=== PATIENT | female | born 1960 | race Caucasian/White ===

== ENCOUNTER 2020-03-24 08:56 | Outpatient (CLI) | payer OTHER, SELFPAY ==
--- NOTE | 2020-03-24 09:30 | NEURO_ITS ---
TEST: ELECTROENCEPHALOGRAM DIAGNOSIS: SEIZURES PATIENT NUMBER: [id number] EEG NUMBER: [id number] RECORDING DATE: 03/24/20 CLINICAL HISTORY: Patient reports she had a seizure 4 years ago from medication for MS. She has had no problems until a couple of months ago. CONDITION OF RECORDING: Awake and drowsy EEG DESCRIPTION: Basic resting occipital frequency consists of low voltage alpha mixed with low voltage beta. Photic stimulation produced poor drive. During drowsiness low voltage beta activity is seen diffusely mixed with waxing and waning posterior alpha rhythms. Bilateral symmetrical sleep activity is seen during sleep. Nonparoxysmal. Nonfocal. Nonlateralizing. IMPRESSION: No significant abnormalities noted. MTDD
== END 2020-03-24 08:57 | disposition home or self-care (01) ==
LOC: ANHNEURO 08:58
PROVIDERS: PCP Internal Medicine; Visit Provider Psychiatry & Neurology Neurology
DX: R56.9 Unspecified convulsions (principal)
CPT/HCPCS: 95816

== ENCOUNTER 2020-03-24 19:54 | Observation (INO) | payer OTHER, SELFPAY ==
--- NOTE | ~2020-03-24 | XR_ITS ---
EXAMINATION: XR chest 2V DATE: 03/24/2020 21:20 INDICATION: Seizures. Resolved left-sided chest pain. TECHNIQUE: frontal and lateral views of the chest were obtained. COMPARISON: Chest radiograph dated 12/06/2010 FINDINGS: The lungs remain clear with no focal airspace opacities, pulmonary edema, pleural effusion or pneumot horax. Heart size and mediastinal silhouette are normal. Right cardiac opacities suggesting a small t o moderate sized hiatal hernia. Visualized bones and soft tissues are unremarkable. IMPRESSION: 1. No acute cardiopulmonary disease. 2. Likely small to moderate hiatal hernia. Reviewed, dictated and finalized at location A.
--- NOTE | ~2020-03-24 | CT_ITS ---
EXAMINATION: CT brain wo con DATE: 03/24/2020 21:20 INDICATION: Seizures. Multiple sclerosis. TECHNIQUE: Computed tomography (CT) of the head was performed without intravenous contrast. Sagittal and coronal reconstructions were performed. The mA was adjusted according to patient size. Iterative reconstruction technique was employed. The dose-length product was 605.33 mGy-cm. COMPARISON: Brain MR dated 03/26/2016 FINDINGS: No acute intracranial hemorrhage, acute infarction or abnormal extra axial fluid collection. Prominen t perivascular space at the inferior aspect of the bilateral basal ganglia. Low-attenuation lesion in the left frontal espinosa radiata which could represent either an old lacunar infarct or demyelinating lesion related to reported history of multiple sclerosis. Ventricles are normal and symmetric. No ma ss/mass effect. Partial opacification of multiple bilateral ethmoid air cells and dependently layerin g fluid in the bilateral sphenoid sinuses. The orbits and mastoid air cells are normal. IMPRESSION: 1. No acute intracranial process. 2. Low-attenuation lesion in the left frontal lobe espinosa radiata which could represent a small old l acunar infarct or demyelinating lesion related to reported history of multiple sclerosis. 3. Sinus disease with layering mucus/fluid in the bilateral sphenoid sinuses. Correlate clinically fo r acute sinusitis. Reviewed, dictated and finalized at location A. IMPRESSION: 1. No acute intracranial process. 2. Low-attenuation lesion in the left frontal lobe espinosa radiata which could r epresent a small old lacunar infarct or demyelinating lesion related to reporte d history of multiple sclerosis. 3. Sinus disease with layering mucus/fluid in the bilateral sphenoid sinuses. C orrelate clinically for acute sinusitis.
[2020-03-24 20:05] VITALS: BP 141/76; PULSE 76; RESP 16; TEMP 36.5; O2SAT 98
--- NOTE | 2020-03-24 20:06 | ECG_ITS ---
Measurements Intervals [employer] Rate: 72 P: 19 MS: 129 QRS: 9 QRSD: 81 T: 31 QT: 370 QTc: 406 Interpretive Statements SINUS RHYTHM BASELINE ARTIFACT- I, II, III, AVR, AVL, AVF, V1-V6 BORDERLINE ECG Electronically Signed On 03-26-2020 8:14:39 CDT by Dante Parsons D.O.
--- NOTE | 2020-03-24 20:15 | ED.SEIZURE ---
HPI - Seizure General Chief Complaint: Seizure Stated Complaint: amb Time Seen by Provider: 03/24/20 20:00 Source: patient and family Mode of arrival: EMS Limitations: no limitations History of Present Illness HPI Narrative: 59-year-old woman with a history of cardiomyopathy and MS brought in today by EMS after having had 16 seizures since noon today. Family states that she had slurred speech but had otherwise recover completely between the episodes. Around the time of the 1st seizure she had some severe chest pain. She told her family that she has some pain in her abdomen before the seizures start. She started having seizures in December and was treated with anti seizure medication and had no seizures until 5 days ago. She had 4 seizures that day, for seizures 2 days ago, 2 seizures yesterday and 16 today. She denies nausea, vomiting, headache, dysuria, abdominal pain, shortness of breath or chest pain at present. She denies any recent illness or head injuries. She had an EEG at [facility] this morning. complaint: seizure Onset (ago): hour(s) (8) Description of Episode: loss of consciousness, tonic-clonic movement and post-event confusion -: minutes(s) Witnessed: Yes - by Bystander Trauma: No Seizure History: Yes Place: home Possible Precipitating Event: none Associated symptoms: chest pain Related Data Home Medications Medication Instructions Recorded Confirmed aspirin [Aspir-81] 81 mg PO DAILY 03/24/20 03/24/20 levetiracetam 500 mg PO BID 03/24/20 03/24/20 losartan 50 mg PO DAILY 03/24/20 03/24/20 metoprolol succinate 12.5 mg PO DAILY 03/24/20 03/24/20 omeprazole 40 mg PO DAILY 03/24/20 03/24/20 Allergies Allergy/AdvReac Type Severity Reaction Status Date / Time Penicillins Allergy Intermediate Anaphylactic Verified 04/26/14 07:51 Shock Review of Systems Constitutional: Constitutional: Denies chills, Denies fever(s) and Denies weakness Eyes: Eyes: Denies change in vision and Denies photophobia ENT: Denies dysphagia, Denies nasal congestion and Denies sore throat Cardiovascular: Cardiovascular: Reports chest pain and Denies radiating jaw, neck or arm pain Respiratory: Respiratory: Denies cough, Denies dyspnea and Denies wheezing Gastrointestinal: Gastrointestinal: Denies abdominal pain, Denies nausea and Denies vomiting Genitourinary: Genitourinary: Denies hematuria, Denies nocturia and Denies dysuria Musculoskeletal: Musculoskeletal: Denies back pain, Denies arthralgias and Denies joint swelling Integumentary/Breasts: Skin/Breast: Denies pruritus, Denies erythema and Denies rash Neurologic: Denies vertigo, Denies dizziness and Denies syncope Hematologic/Lymphatic: Hematologic/Lymphatic: Denies easy bleeding and Denies easy bruising Allergic/Immunologic: Allergic/Immunologic: Denies lip swelling and Denies wheezing PMFSH Past Medical History Medical History Multiple sclerosis Seizures Social History Social History Smoking status: Never smoker Alcohol intake: never Substance use: never Living arrangements: with family Exam Const: General: healthy appearing, no acute distress and alert Orientation/consciousness: patient oriented x3 Limitations: no limitations HENMT: Head: normal to inspection Ears: external ears normal and EAC's normal Face and sinus: normal facial exam Mouth: Yes Normal oral and palatal mucosa present and Yes moist mucous membranes Throat: posterior oropharynx normal and uvula midline Eyes: Conjunctivae: conjunctivae normal Pupils: Equal, round and reactive pupils present EOM: EOMs intact bilaterally Neck: Neck: normal visual inspection and no lymphadenopathy Resp: Effort & Inspection: normal respiratory effort and not labored Auscultation: clear to auscultation bilaterally, no rales, no rhonchi and no wheezes Cardio: Rate: re
--- NOTE | 2020-03-24 20:20 | PC.NURSE ---
THIS RN CALLED INTO ROOM BY [employer], STATES SHE IS HAVING A SEIZURE . PT HAS EYE TWITCHING AND SHOULDERS BOUNCING - PT IS TAPPED ON THE SHOULDER BY ERP, PATIENT OPENS EYES UP AND IS ABLE TO ANSWER IMMEDIATELY AND APPROPRIATELY. NO SEIZURE ACTIVITY NOTED
[2020-03-24 20:27] LABS: Basophils Absolute Auto 0.04 K/mm3 (0.00-0.10); Basophils Percent Auto 0.7 % (0.0-1.0); Eosinophils Absolute Auto 0.25 K/mm3 (0.02-0.50); Eosinophils Percent Auto 4.3 % (1.0-6.0); Hematocrit 38.2 % (35.0-49.0); Hemoglobin 12.6 g/dL (12.0-15.0); Immature Granulocyte Absolute 0.01 K/mm3 (0.00-0.00); Immature Granulocyte Percent A 0.2 % (0.0-0.0); Lymphocytes Absolute Auto 1.92 K/mm3 (1.10-4.50); Lymphocytes Percent Auto 32.7 % (18.0-42.0); Mean Corpuscular Hemoglobin 31.5 pg (27.0-31.0); Mean Corpuscular Volume 95.5 fL (78.0-102.0); Mean Platelet Volume 12.2 fl (9.2-11.8); Monocytes Percent Auto 8.5 % (2.0-11.0); Neutrophils Absolute Auto 3.2 K/mm3 (1.7-7.2); Neutrophils Percent Auto 53.6 % (50.0-70.0); Platelet Count Result 212 K/mm3 (150-420); Red Cell Distribution Width 13.2 % (11.6-14.4); White Blood Count 5.9 K/mm3 (4.8-10.8)
[2020-03-24 20:36] LABS: Add Urine Microscopic? NO; Appearance Urine Clear (Clear); Bilirubin Urine Negative (Negative); Blood Urine Negative (Negative); Color Urine Yellow (Yellow); Glucose Urine UA Negative (Negative); Ketones Urine Negative (Negative); Leukocyte Esterase Ur Negative LEU/UL (Negative); Nitrate Urine Negative (Negative); Protein Urine Negative (Negative); Specific Grav Ur <= 1.005 (1.010-1.020); Urobilinogen Urine 0.2 mg/dL (0.2-1.0)
[2020-03-24 20:41] LABS: Partial Thromboplastin Time 28.9 SEC (22.3-31.6); Prothrombin Time 10.3 Seconds (9.64-11.0)
[2020-03-24 20:47] LABS: Alanine Aminotransferase 22 U/L (14-59); Albumin Level 3.5 g/dL (3.4-5.0); Alkaline Phosphatase 107 U/L (46-116); Anion Gap 11.8 mmol/L (7-16); Aspartate Amino Transferase 20 U/L (15-37); Bilirubin,Total 0.3 mg/dL (0.00-1.00); Blood Urea Nitrogen 20 mg/dL (7-18); CRP 1.1 mg/dL (0.0-0.9); Calcium 9.2 mg/dL (8.5-10.1); Carbon Dioxide 28 mmol/L (21-32); Chloride 103 mmol/L (98-108); Estimated Glomerular Filt Rate 48; Glucose 98 mg/dL (70-99); Osmolality Calculated 290 mOsm/kg (285-295); Potassium 3.8 mmol/L (3.5-5.1); Sodium 139 mmol/L (136-145); Total Protein 7.8 g/dL (6.4-8.2)
[2020-03-24 20:48] LABS: Troponin I < 0.02 ng/mL (0.00-0.056)
[2020-03-24 20:48] LABS: Creatine Kinase 62 U/L (26-192)
[2020-03-24 20:50] LABS: Lactic Acid Reflex 1.1 mmol/L (0.4-2.0)
--- NOTE | 2020-03-24 21:02 | PC.NURSE ---
ERP SPEAKING WITH DR ESPINOZA, NEUROLOGY
[2020-03-24 21:16] VITALS: BP 113/75; PULSE 73; O2SAT 96
[2020-03-24 21:41] VITALS: BP 132/63; PULSE 73; RESP 18; TEMP 36.6; O2SAT 96; BMI 30.1
[2020-03-24 21:45] VITALS: BP 117/68; PULSE 82; RESP 15; O2SAT 96
[2020-03-24 22:00] VITALS: RESP 18
--- NOTE | 2020-03-24 22:00 | ADMGEN ---
This patient, Samara Kelly, was admitted to 2nd Floor Room 204-2. Patient states she had recently received a medication and started having seizures. States seizures starts with tingling in stomach and spreads to generalized tremors but may be her M.S. that also causes tremors, patient states she is aware during the episodes. Patient/family oriented to hospital policies and general routines including ID bracelet, bed and alarms, visiting hours, pain management, procedures, bathroom and other care routines, personal items, smoking policy, room service/diet, and visiting hours. Valuables list has been completed. Information on how to activate the Rapid Response Team has been discussed. Patient/Family are encouraged to report perceived risks to care and to ask questions if they do not understand what they are told or what they should do.
[2020-03-24] MEDS: levETIRAcetam Tablet 250 MG, levETIRAcetam Tablet 500 MG 750 MG PO (22:35)
--- NOTE | 2020-03-24 23:50 | PC.NURSE ---
Talking on phone; no distress noted. No seizure activity noted.
[2020-03-25] VITALS: BP 140/82; PULSE 76; RESP 18; TEMP 36.3; O2SAT 97
[2020-03-25 01:42] LABS: Troponin I < 0.02 ng/mL (0.00-0.056)
--- NOTE | 2020-03-25 03:40 | PC.NURSE ---
Assisted up to bedside commode by one for safety; voided clear light yellow urine; patient instructed to call for assist, was found up washing hands at sink, cautioned to call for assist to ambulate in case of seizure, patient agrees to do so, assisted back to bed.
[2020-03-25 05:52] LABS: Basophils Absolute Auto 0.04 K/mm3 (0.00-0.10); Basophils Percent Auto 0.8 % (0.0-1.0); Eosinophils Absolute Auto 0.18 K/mm3 (0.02-0.50); Eosinophils Percent Auto 3.6 % (1.0-6.0); Hemoglobin 12.7 g/dL (12.0-15.0); Immature Granulocyte Absolute 0.01 K/mm3 (0.00-0.00); Immature Granulocyte Percent A 0.2 % (0.0-0.0); Lymphocytes Absolute Auto 1.76 K/mm3 (1.10-4.50); Lymphocytes Percent Auto 35.1 % (18.0-42.0); Mean Corpuscular HGB Conc 32.6 g/dL (32.0-36.0); Mean Corpuscular Hemoglobin 31.1 pg (27.0-31.0); Mean Corpuscular Volume 95.4 fL (78.0-102.0); Mean Platelet Volume 12.5 fl (9.2-11.8); Monocytes Absolute Auto 0.48 K/mm3 (0.10-0.90); Monocytes Percent Auto 9.6 % (2.0-11.0); Neutrophils Absolute Auto 2.5 K/mm3 (1.7-7.2); Neutrophils Percent Auto 50.7 % (50.0-70.0); Platelet Count Result 211 K/mm3 (150-420); Red Blood Count 4.09 M/mm3 (4.20-5.40); Red Cell Distribution Width 13.2 % (11.6-14.4)
[2020-03-25 06:10] LABS: Alanine Aminotransferase 23 U/L (14-59); Albumin Level 3.4 g/dL (3.4-5.0); Alkaline Phosphatase 100 U/L (46-116); Anion Gap 12.8 mmol/L (7-16); Aspartate Amino Transferase 18 U/L (15-37); Bilirubin,Total 0.5 mg/dL (0.00-1.00); Blood Urea Nitrogen 15 mg/dL (7-18); Calcium 9.1 mg/dL (8.5-10.1); Carbon Dioxide 28 mmol/L (21-32); Chloride 104 mmol/L (98-108); Estimated CRCL calculation 49 ml/min; Estimated Glomerular Filt Rate 57; Glucose 91 mg/dL (70-99); Osmolality Calculated 292 mOsm/kg (285-295); Potassium 3.8 mmol/L (3.5-5.1); Sodium 141 mmol/L (136-145); Total Protein 7.8 g/dL (6.4-8.2)
[2020-03-25 06:15] LABS: Lactic Acid Reflex 0.8 mmol/L (0.4-2.0)
[2020-03-25 06:18] LABS: Troponin I < 0.02 ng/mL (0.00-0.056)
[2020-03-25 07:48] VITALS: BP 122/71; PULSE 90; RESP 18; TEMP 36.5; O2SAT 97
[2020-03-25] MEDS: PANTOPRAZOLE 40 MG TABLET PO (07:58)
[2020-03-25] MEDS: LOSARTAN POTASSIUM 50 MG TABLET PO (07:58)
[2020-03-25] MEDS: ASPIRIN 81 MG ENTERIC TABLET PO (07:58)
--- NOTE | 2020-03-25 08:48 | PC.NURSE ---
pt reports no seizure activity, has been in touch with her mother and she is going to pick her up today when dc'd, pt walks to restroom without difficulty
[2020-03-25 09:27] VITALS: PULSE 90
[2020-03-25] MEDS: METOPROLOL SUCCINATE EXT REL 25 MG TABCR 12.5 MG PO (09:27)
[2020-03-25] MEDS: levETIRAcetam Tablet 250 MG, levETIRAcetam Tablet 500 MG 750 MG PO (09:28)
--- NOTE | 2020-03-25 10:26 | PC.NURSE ---
pt reports no seizure activity, dr mcconnell and chelsey in with her now for rounds
--- NOTE | 2020-03-25 11:25 | PM.SD ---
Same Day Admit/Disch: HPI History of Present Illness Chief complaint: amb <JOAN Fisher-[place] - Last Filed: 03/25/20 12:26> Narrative: Samara Kelly is a 59 year old female that visited the ED for chest pain along with increased seizure activity. Patient has a past medical history of MS and seizures. according to the patient she has had increased seizure activity for the last couple of days. Her to the e.d. was she started experiencing chest pains that did not radiate. patient noted that she did not want to come to the ED but her mother and brother insisted that she visited the ED. she noted that yesterday she had a total of 16 seizures along with her seizures she had an abnormal feeling in her abdominal area before the seizures and tingling to her right upper extremity. while in the ED a chest x-ray and head CT was completed which was unremarkable, patient's BNP and creatinine was slightly elevated currently within normal limits and patient's CRP was 1.1. patient's troponins x3 was negative. Vital signs 97.7, 90, 18, 97%, 122/71. she also noted that she is a patient of Dr. Black he discontinued medication for MS thinking that might be the possible source of her seizures. after discontinuing her medication she continued to have seizures. our ED doctor did speak with Dr. Black noted that the patient should have been taking 750mg of Keppra b.i.d.. patient was only taking 500 mg of Keppra b.i.d. since patient's Keppra has been increased she has not any seizure activities. patient will discharge today Keppra 750 mg b.i.d. and her aspirin will be increased to 325. she will need to follow-up with her neurologist and Dr. Khanna her metal mockup maker. Patient able to tolerate all meals , slept well and ambulate at baseline. Patient denies SOB, CP, palpitation, extremity numbness, lightheadness, dizziness, constipation, diarrhea, chills or fever. Patient agree that they are ready for discharge and discharge plan. <JOAN [place] - Last Filed: 03/25/20 12:26> [facility] Past Medical History Medical History: Medical History Multiple sclerosis Seizures <Steven SotoJOAN-[place] - Last Filed: 03/25/20 12:26> Social History Social History: Social History Smoking status: Never smoker Second hand tobacco smoke exposure: No Alcohol intake: never Substance use: never Substance use type: does not use Living arrangements: with family Gender identity (if verbalized by the patient): Female Spiritual care concerns: No <Steven SootMELISSA - Last Filed: 03/25/20 12:26> Same Day Admit/Disch: Med Pre-admit Medications Home Medications: Home Medications Medication Instructions Recorded Confirmed Type aspirin [Aspir-81] 81 mg PO DAILY 03/24/20 03/24/20 History losartan 50 mg PO DAILY 03/24/20 03/24/20 History metoprolol succinate 12.5 mg PO DAILY 03/24/20 03/24/20 History omeprazole 40 mg PO DAILY 03/24/20 03/24/20 History levetiracetam 750 mg PO Q12HR #30 tablet 03/25/20 Rx <Steven SotoJOAN-[place] - Last Filed: 03/25/20 12:26> Exam Narrative: Exam Narrative: General: A well-developed, well-nourished female sitting up in bed no acute distress. HEENT: Normocephalic, atraumatic. PERRL, EOMI. Sclerae anicteric. Oral mucosa moist. Oropharynx clear. Neck: Supple. Respiratory: Lungs are clear to auscultation bilaterally. Cardiovascular: Regular rate and rhythm Gastrointestinal: Abdomen is soft, nontender, and nondistended with positive bowel sounds. No organomegaly. Skin: Warm, dry, and slightly pale.. No rash or lesions on limited exam. Extremities: No cyanosis, clubbing, or edema. Radial and pedal pulses intact. Neurological: Alert. Cranial nerves 2-12 are grossly intact. No gross focal deficits to casual conversation. Psychiatric: Pleasant and cooperative with normal
== END 2020-03-25 12:05 | disposition home or self-care (01) ==
LOC: CHSED 21:40 → CHS2ND 21:49
PROVIDERS: Admitting Provider Emergency Medicine; Emergency Provider Emergency Medicine; PCP Internal Medicine; Visit Provider Emergency Medicine
DX: R56.9 Unspecified convulsions (principal); R07.9 Chest pain, unspecified; G35 Multiple sclerosis; I42.9 Cardiomyopathy, unspecified; K21.9 Gastro-esophageal reflux disease without esophagitis
CPT/HCPCS: 36415; 51701; 70450; 71046; 80053; 81003; 82550; 83605; 84484; 85025; 85610; 85730; 86140; 87040; 93005; 99285; A9270; G0378

== ENCOUNTER 2021-05-06 09:26 | Emergency (ER) | payer OTHER, SELFPAY ==
--- NOTE | ~2021-05-06 | XR_ITS ---
EXAMINATION: XR chest 2V DATE: 05/06/2021 10:01 INDICATION: Cough and left-sided chest pain TECHNIQUE: PA and lateral views of the chest were obtained. COMPARISON: Chest radiograph dated 03/24/2020 FINDINGS: A couple small calcified pulmonary nodules at the posterior sulci of the lungs on the lateral project ion consistent with old granulomatous disease. No other airspace opacities, pulmonary edema, pleural effusion or pneumothorax. Moderate-sized hiatal hernia. Heart size is normal. Mild thoracic spondylos is. IMPRESSION: 1. No acute cardiopulmonary disease. 2. Moderate sized hiatal hernia. Reviewed, dictated and finalized at location A.
--- NOTE | 2021-05-06 09:34 | ECG_ITS ---
Measurements Intervals [place] Rate: 82 P: 26 OR: 142 QRS: -1 QRSD: 77 T: 13 QT: 360 QTc: 422 Interpretive Statements SINUS RHYTHM WITH SINUS ARRHYTHMIA BASELINE ARTIFACT- II, III, AVF, V2 NORMAL ECG Electronically Signed On 05-06-2021 17:48:51 CDT by Dante Parsons D.O.
[2021-05-06 09:54] VITALS: BP 116/88; PULSE 86; RESP 20; TEMP 37; O2SAT 97
[2021-05-06 10:04] VITALS: PULSE 86
[2021-05-06 10:12] LABS: Basophils Absolute Auto 0.06 K/mm3 (0.00-0.10); Basophils Percent Auto 1.1 % (0.0-1.0); Eosinophils Absolute Auto 0.43 K/mm3 (0.02-0.50); Eosinophils Percent Auto 7.6 % (1.0-6.0); Hematocrit 39.5 % (35.0-49.0); Hemoglobin 12.7 g/dL (12.0-15.0); Immature Granulocyte Absolute 0.01 K/mm3 (0.00-0.00); Immature Granulocyte Percent A 0.2 % (0.0-0.0); Lymphocytes Absolute Auto 0.87 K/mm3 (1.10-4.50); Lymphocytes Percent Auto 15.4 % (18.0-42.0); Mean Corpuscular HGB Conc 32.2 g/dL (32.0-36.0); Mean Corpuscular Hemoglobin 30.1 pg (27.0-31.0); Mean Corpuscular Volume 93.6 fL (78.0-102.0); Mean Platelet Volume 11.4 fl (9.2-11.8); Monocytes Absolute Auto 0.45 K/mm3 (0.10-0.90); Neutrophils Absolute Auto 3.8 K/mm3 (1.7-7.2); Neutrophils Percent Auto 67.7 % (50.0-70.0); Platelet Count Result 249 K/mm3 (150-420); Red Blood Count 4.22 M/mm3 (4.20-5.40); Red Cell Distribution Width 13.5 % (11.6-14.4); White Blood Count 5.7 K/mm3 (4.8-10.8)
--- NOTE | 2021-05-06 10:21 | PC.NURSE ---
1010 PT REFUSED NITRO STATES HER TERMINAL COMPUTER OPERATOR TOLD HER NOT TO TAKE NITRO
[2021-05-06 10:25] LABS: Prothrombin Time 10.6 Seconds (9.50-12.10)
[2021-05-06 10:32] LABS: Alanine Aminotransferase 23 U/L (14-59); Albumin Level 3.6 g/dL (3.4-5.0); Alkaline Phosphatase 123 U/L (46-116); Anion Gap 14 mmol/L (8-16); Aspartate Amino Transferase 19 U/L (15-37); Bilirubin,Total 0.6 mg/dL (0.00-1.00); Blood Urea Nitrogen 14 mg/dL (7-18); Calcium 9.1 mg/dL (8.5-10.1); Carbon Dioxide 23 mmol/L (21-32); Chloride 102 mmol/L (98-108); Estimated CRCL calculation 54 ml/min; Estimated Glomerular Filt Rate > 60; Glucose 110 mg/dL (70-99); Osmolality Calculated 289 mOsm/kg (285-295); Potassium 4.2 mmol/L (3.5-5.1); Sodium 139 mmol/L (136-145); Total Protein 7.9 g/dL (6.4-8.2)
[2021-05-06 10:33] LABS: Troponin I < 4.0 ng/L (0.00-60.4)
--- NOTE | 2021-05-06 12:12 | ED.CHESTPAIN ---
HPI - Chest Pain General Chief Complaint: Chest Pain Stated Complaint: left arm and chest pain Source: patient and RN notes reviewed Mode of arrival: ambulatory Limitations: no limitations History of Present Illness HPI narrative: Patient states that she has been having chest pain for the last 3 days. She said initially it started with pain in her left arm and went up into her left shoulder. She has a history of MS and thought it was due to her MS. Than last evening she had pain in her jaw and in her teeth. When she would lay down her chest pain that began with 5/10 that was worse with laying down and better when sitting up. Since she began having the centralized substernal chest pain with jaw pain she decided to be evaluated. She denies nausea vomiting, shortness of breath, diaphoresis. She recently was started on Zithromax and inhalers for a recent bronchitis by her primary care physician. She has been vaccinated for COVID MD complaint: chest pain Onset (ago): day(s) (3) Timing of current episode: episodic Prior episodes: Yes Onset: during rest Pain location: substernal Pain radiation: left arm and jaw/teeth Severity: moderate Pain scale (0-10): 5 Quality: sharp Relieving factors: sitting upright Exacerbating factors: supine Context: recent illness Treatment prior to arrival: aspirin (650 mg) Risk Factors Thoracic aortic dissection risk factors: none Related Data Home Medications Medication Instructions Recorded Confirmed aspirin [Aspir-81] 81 mg PO DAILY 03/24/20 05/06/21 losartan 50 mg PO DAILY 03/24/20 05/06/21 metoprolol succinate 12.5 mg PO DAILY 03/24/20 05/06/21 omeprazole 40 mg PO DAILY 03/24/20 05/06/21 azithromycin 250 mg PO DAILY 05/06/21 05/06/21 levalbuterol tartrate 1 inh INHALATION TID 05/06/21 05/06/21 levetiracetam 1,000 mg PO Q12HR 05/06/21 05/06/21 ofatumumab [Kesimpta Pen] 20 mg SUBCUT MONTHLY 05/06/21 05/06/21 Allergies Allergy/AdvReac Type Severity Reaction Status Date / Time Penicillins Allergy Intermediate Anaphylactic Verified 05/06/21 10:41 Shock Review of Systems Review of Systems: All systems reviewed & are unremarkable except as noted in HPI and below Constitutional: Constitutional: Denies chills and Denies fever(s) Cardiovascular: Cardiovascular: Reports as per HPI Respiratory: Respiratory: Reports cough (for last week) and Denies dyspnea Gastrointestinal: Gastrointestinal: Denies nausea and Denies vomiting PMFSH Past Medical History Medical History (Updated 05/06/21 @ 12:14 by Terell Reinoso MD) Multiple sclerosis Seizures Family History Family History Mother Hypertension Father Cancer Heart disease Social History Social History Smoking status: Never smoker Second hand tobacco smoke exposure: No Alcohol intake: never Substance use: never Substance use type: does not use Gender identity (if verbalized by the patient): Female Spiritual care concerns: No Exam Const: General: healthy appearing and no acute distress Nutritional Appearance: well nourished and thin Orientation/consciousness: patient oriented x3 HENMT: Head: normal to inspection Ears: external ears normal Face and sinus: normal facial exam Eyes: Conjunctivae: conjunctivae normal Pupils: Equal, round and reactive pupils present EOM: EOMs intact bilaterally Neck: Neck: normal visual inspection Resp: Effort & Inspection: normal respiratory effort Auscultation: clear to auscultation bilaterally Cardio: Rate: regular rate Rhythm: regular rhythm GI: GI Palp: Yes Soft to palpation and No Tenderness to palpation present (GI) Auscultation: normal bowel sounds Back/Spine/Pelvis: Cervical Spine: cervical ROM normal Thoracic/Lumbar Spine: thoraco-lumbar ROM normal Skin: General skin exam: normal color Rashes: no rashes Neuro: General: patient oriented x3, moves
[2021-05-06 12:30] VITALS: BP 127/72; PULSE 70; RESP 20; TEMP 36.6; O2SAT 96
== END 2021-05-06 12:28 | disposition home or self-care (01) ==
PROVIDERS: Emergency Provider Emergency Medicine; PCP Internal Medicine
DX: R07.89 Other chest pain (principal)
CPT/HCPCS: 36415; 71046; 80053; 83735; 84484; 85025; 85610; 93005; 99283; 99284

== ENCOUNTER 2021-06-19 12:17 | Outpatient (CLI) | payer OTHER, SELFPAY | END 2021-06-19 12:18 | disposition home or self-care (01) | LOC: CHSCARD 12:20 | PROVIDERS: PCP Internal Medicine; Visit Provider Internal Medicine | DX: R05 Cough (principal); K21.9 Gastro-esophageal reflux disease without esophagitis; J45.909 Unspecified asthma, uncomplicated | CPT/HCPCS: 94060; 94726; 94729; 95012 ==

== ENCOUNTER 2021-06-22 08:14 | Outpatient (CLI) | payer OTHER, SELFPAY ==
--- NOTE | ~2021-06-22 | XR_ITS ---
EXAMINATION: XR UGI wo kub EXAM DATE: 06/22/2021 08:58 INDICATION: GERD/ continuous cough xyrs . TECHNIQUE: Standard single and double contrast barium upper GI examination was performed by radiolog isleonardo Tong M.D. Pulsed dose reduction fluoroscopy was used with fluoroscopic time of 0.3 minut es. The DAP for this procedure was 1.5 Gycm2. A total of 62 images obtained for the exam. FINDINGS: There is no esophageal stricture, diverticulum or mass identified. There is moderate size sliding gastroesophageal hiatal hernia. Large amount of reflux was demonstrated during the examinatio n. The stomach has a normal appearance without evidence of mass lesion, ulceration or filling defect. T here is normal rugal fold pattern. The duodenum and duodenal sweep are normal in appearance. IMPRESSION: Moderate-sized gastroesophageal hiatal hernia, reflux demonstrated. Reviewed, dictated and finalized at location .
== END 2021-06-22 08:15 | disposition home or self-care (01) ==
LOC: CHSIMG 08:16
PROVIDERS: PCP Internal Medicine; Visit Provider Internal Medicine
DX: R05 Cough (principal); K21.9 Gastro-esophageal reflux disease without esophagitis; J45.909 Unspecified asthma, uncomplicated
CPT/HCPCS: 74240

== ENCOUNTER 2021-08-24 13:32 | Outpatient (CLI) | payer OTHER, SELFPAY ==
[2021-08-24 14:53] LABS: SARS-CoV-2 RNA PCR Negative (Negative)
== END 2021-08-24 13:33 | disposition home or self-care (01) ==
LOC: CHSLAB 13:33
PROVIDERS: PCP Internal Medicine; Visit Provider Internal Medicine
DX: Z20.822 Contact with and (suspected) exposure to COVID-19 (principal)
CPT/HCPCS: C9803; U0003; U0005

== ENCOUNTER 2022-04-26 17:57 | Outpatient (CLI) | payer OTHER, SELFPAY ==
[2022-04-26 18:15] LABS: Add Urine Microscopic? YES; Appearance Urine Slightly Cloudy (Clear); Bilirubin Urine Negative (Negative); Blood Urine 3+ (Negative); Color Urine Light Yellow (Yellow); Glucose Urine UA Negative (Negative); Ketones Urine Negative (Negative); Leukocyte Esterase Ur 2+ (Negative); Nitrate Urine Negative (Negative); Protein Urine Negative (Negative); Specific Grav Ur <= 1.005 (1.010-1.020); Urobilinogen Urine 0.2 mg/dL (0.2-1.0)
[2022-04-26 18:30] LABS: Bacteria Urine Trace /hpf; Squamous Epithelial Cell Urine Rare /hpf (Few); WBC Urine >75 /hpf (0-3)
== END 2022-04-26 17:58 | disposition home or self-care (01) ==
LOC: CHSLAB 17:58
PROVIDERS: PCP Internal Medicine; Visit Provider Internal Medicine
DX: N39.0 Urinary tract infection, site not specified (principal)
CPT/HCPCS: 81001; 87077; 87086; 87186

== ENCOUNTER 2022-11-11 12:02 | Outpatient (CLI) | payer OTHER, SELFPAY ==
--- NOTE | 2022-11-11 12:21 | ECHO_ITS ---
Patient Info Name: Samara Kelly Age: 62 years : 1960 Gender: Female Ht: 61 in Wt: 160 lbs BSA: 1.79 m2 HR: 74 bpm BP: 144 / 79 mmHg Heart Rhythm: Sinus Rhythm Technical Quality: Fair Exam Date: 11/11/2022 1:08 PM Exam Location: [facility] Patient Status: Outpatient Admit Date: 11/11/2022 Staff Ordering Physician: Dante Parsons DO Biophysics Professor: Mary Maxwell RDCS Attending Provider: Dante Parsons DO Referring Physician: Issa TOBIAS; Exam Type: CA echo doppler color flow Study Info Indications I42.9 - Cardiomyopathy, unspecified Complete two-dimensional, color flow and Doppler transthoracic echocardiogram is performed. Summary 1. Complete two-dimensional, color flow and Doppler transthoracic echocardiogram is performed. 2. Left ventricular chamber dimension is normal. 3. Left ventricular systolic function is normal, estimated at 60-65%. 4. The left ventricular diastolic function is grade I diastolic dysfunction. 5. E/e' 9 is minimally elevated. 6. Global longitudinal strain is normal at -18.6%. 7. Left atrial chamber dimension is mildly enlarged. 8. There is mild aortic valve sclerosis. 9. There is mild mitral valve regurgitation. 10. There is mild tricuspid valve regurgitation. 11. No pulmonary hypertension, estimated pulmonary arterial systolic pressure is 26 mmHg. 12. There is trace pulmonic regurgitation. Left Ventricle E/e' 9 is minimally elevated. Global longitudinal strain is normal at -18.6%. Left ventricular chamber dimension is normal. Left ventricular systolic function is normal, estimated at 60-65%. The left ventricular diastolic function is grade I diastolic dysfunction. Right Ventricle Right ventricular systolic function is normal and with normal TAPSE 2.1 cm. Right ventricular chamber dimension is normal. Left Atria Left atrial chamber dimension is mildly enlarged. Right Atria Right atrial chamber dimension is normal. Aortic Valve The aortic valve is trileaflet. There is mild aortic valve sclerosis. There is no aortic valve stenosis. There is no aortic valve regurgitation. Pulmonic Valve There is trace pulmonic regurgitation. Mitral Valve There is no mitral valve stenosis. There is mild mitral valve regurgitation. Tricuspid Valve There is mild tricuspid valve regurgitation. No pulmonary hypertension, estimated pulmonary arterial systolic pressure is 26 mmHg. Pericardium/Pleural There is no pericardial effusion. Inferior Vena Cava Normal inferior vena cava with >50% collapse upon inspiration consistent with normal right atrial pressure, 5 mmHg. Aorta The aortic root size at the sinus of Valsalva is normal. Left Ventricular Outflow Tract Name Value Normal LVOT 2D LVOT Diameter 2.0 cm LVOT Doppler LVOT Peak Velocity 71 cm/s LVOT Peak Gradient 2 mmHg LVOT Mean Gradient 1 mmHg LVOT VTI 14 cm LVOT VTI/AV VTI Ratio 0.5 LVOT Stroke Volume 44 ml Pulmonic Mary
== END 2022-11-11 12:03 | disposition home or self-care (01) ==
LOC: CHSIMG 12:03
PROVIDERS: PCP Internal Medicine; Visit Provider Internal Medicine Cardiovascular Disease
DX: I42.9 Cardiomyopathy, unspecified (principal); I08.3 Combined rheumatic disorders of mitral, aortic and tricuspid valves
CPT/HCPCS: 93306

== ENCOUNTER 2023-04-01 09:02 | Outpatient (CLI) | payer OTHER, SELFPAY ==
[2023-04-01 10:15] LABS: Cholesterol 228 mg/dL (0-200); HDL Direct 49 mg/dL (40-60); LDL Cholesterol Calculated 150 mg/dL (<130); Triglycerides 146 mg/dL (0-150)
== END 2023-04-01 09:03 | disposition home or self-care (01) ==
LOC: CHSLAB 09:04
PROVIDERS: PCP Internal Medicine; Visit Provider Internal Medicine Cardiovascular Disease
DX: I42.9 Cardiomyopathy, unspecified (principal)
CPT/HCPCS: 36415; 80061

== ENCOUNTER 2023-05-03 10:51 | Outpatient (CLI) | payer OTHER, SELFPAY ==
[2023-05-03 11:46] LABS: Alanine Aminotransferase 26 U/L (14-59); Albumin Level 3.5 g/dL (3.4-5.0); Alkaline Phosphatase 147 U/L (46-116); Anion Gap 9 mmol/L (8-16); Aspartate Amino Transferase 13 U/L (15-37); Bilirubin,Total 0.5 mg/dL (0.00-1.00); Blood Urea Nitrogen 13 mg/dL (7-18); Calcium 9.1 mg/dL (8.5-10.1); Carbon Dioxide 28 mmol/L (21-32); Chloride 105 mmol/L (98-108); Cholesterol 201 mg/dL (0-200); Estimated Glomerular Filt Rate 52; Glucose 97 mg/dL (70-99); HDL Direct 52 mg/dL (40-60); LDL Cholesterol Calculated 114 mg/dL (<130); Osmolality Calculated 294 mOsm/kg (285-295); Potassium 4.2 mmol/L (3.5-5.1); Sodium 142 mmol/L (136-145); Total Protein 7.2 g/dL (6.4-8.2); Triglycerides 174 mg/dL (0-150)
== END 2023-05-03 10:52 | disposition home or self-care (01) ==
LOC: CHSLAB 10:53
PROVIDERS: PCP Internal Medicine; Visit Provider Internal Medicine Cardiovascular Disease
DX: E78.5 Hyperlipidemia, unspecified (principal)
CPT/HCPCS: 36415; 80053; 80061

== ENCOUNTER 2023-06-20 15:33 | Outpatient (CLI) | payer OTHER, SELFPAY ==
--- NOTE | ~2023-06-20 | XR_ITS ---
EXAMINATION: XR ankle LT min 3V DATE: 06/20/2023 16:02 INDICATION: Left ankle pain TECHNIQUE: Anteroposterior, lateral, mortise, and additional oblique view of the ankle were obtained. COMPARISON: None. FINDINGS: Bone alignment is normal. There is no fracture. There is a plantar calcaneal enthesophyte. A bone cyst is noted in the calcaneus. The soft tissues are unremarkable IMPRESSION: 1. No acute osseous abnormality. Reviewed, dictated and finalized at location F.
--- NOTE | ~2023-06-20 | XR_ITS ---
EXAMINATION: XR foot LT min 3V DATE: 06/20/2023 16:02 INDICATION: Left foot pain TECHNIQUE: Dorsoplantar, lateral, and 2 oblique views of the left foot were obtained. COMPARISON: None. FINDINGS: Bone alignment is normal. There is no fracture. There is mild osteoarthritis at the first m etatarsophalangeal joint and mild to moderate osteoarthritis of multiple interphalangeal joints. A jeffy ne cyst is noted in the calcaneus. The soft tissues are unremarkable. IMPRESSION: 1. No acute osseous abnormality. Reviewed, dictated and finalized at location F.
== END 2023-06-20 15:34 | disposition home or self-care (01) ==
LOC: CHSIMG 15:35
PROVIDERS: PCP Internal Medicine; Visit Provider Internal Medicine
DX: M25.572 Pain in left ankle and joints of left foot (principal)
CPT/HCPCS: 73610; 73630

== ENCOUNTER 2023-10-20 14:28 | Outpatient (NON) | payer OTHER, SELFPAY ==
[2023-10-20 14:37] LABS: Appearance Urine Clear (Clear); Bilirubin Urine Negative (Negative); Blood Urine 1+ (Negative); Color Urine Light Yellow (Yellow); Glucose Urine UA Negative (Negative); Ketones Urine Negative (Negative); Leukocyte Esterase Ur 1+ (Negative); Nitrate Urine Negative (Negative); Protein Urine Negative (Negative); Specific Grav Ur <= 1.005 (1.010-1.020); Urobilinogen Urine 0.2 mg/dL (0.2-1.0); pH Urine 5.5 (5.0-8.0)
[2023-10-20 15:47] LABS: Add Urine Microscopic? YES; Bacteria Urine 3+ /hpf; RBC Urine 0-2 /hpf (0-2); Squamous Epithelial Cell Urine None seen /hpf (Few)
== END 2023-10-20 14:29 | disposition home or self-care (01) ==
LOC: CHSLAB 14:30
PROVIDERS: Visit Provider Internal Medicine
DX: N39.0 Urinary tract infection, site not specified (principal)
CPT/HCPCS: 81001; 87077; 87086; 87088; 87186

== ENCOUNTER 2025-03-14 13:26 | Outpatient (CLI) | payer OTHER, SELFPAY ==
--- NOTE | ~2025-03-14 | XR_ITS ---
XR wrist RT min 3V Ordering provider: Bing Martinez, REGIONAL MEDICAL DIRECTOR History: . WRIST AND HAND PAIN . Comparison: None. FINDINGS: BONES: Bone fragment seen posteriorly which is suggestive of a triquetral fracture. Clinical correlat ion and follow-up advised. JOINT SPACES: Normal. SOFT TISSUES: Normal. IMPRESSION: Highly suggestive triquetral fracture. Reviewed, dictated and finalized at location A.
--- NOTE | ~2025-03-14 | XR_ITS ---
XR hand RT min 3V Ordering provider: Bing Martinez, DIRECTOR OF CORPORATE COMMUNICATIONS History: . WRIST AND HAND PAIN . Comparison: None. FINDINGS: BONES: No definite acute fracture or dislocation. Possibility of a bony fragment is seen posteriorly in the wrist bones area which may indicate triquetral fracture. Follow-up and if clinically warranted further evaluation advised. JOINT SPACES: Narrowing of the proximal and distal interphalangeal joints. SOFT TISSUES: Normal. IMPRESSION: Possible bony fragment seen posteriorly which may indicate triquetral fracture. Clinical correlation and follow-up advised. Polyarticular osteoarthritic changes. Reviewed, dictated and finalized at location A.
--- OUTSIDE RECORDS SUMMARY | 2025-03-14 14:43 | XMS_ITS | Encounter Summary ---
Author Organization [facility] Address [address] [facility] [place] [place] [address] Phone Care Team Providers Care Horologist Apprentice Name Role Phone Jae Hunt MD Primary Care Provider [phone] Gurdeep Lorenzana MD Unavailable [phone] Reason for Visit * Reason Comments Medication Refill Encounter Details Date Type Department Care Team (Late st Contact Info) Description 05/29/2023 [facility] [address] [place] [address] Gurdeep Lorenzana MD [address] [place] [address] Medication Refill Social History Tobacco Use Types Packs/Day Years Used Date Smoking Tobacco: Never Smokeless Tobacco: Never Alcohol Use Standard Drinks/Week Comments Never 0 (1 standard drink = 0.6 oz pur e alcohol) Comments Unknown Sex and Gender Information Value Date Recorded Sex Assigned at Not on file Legal Sex Female 8:50 PM CDT Gender Identity Not on file Sexual Orientation Not on file documented as of this encounter Miscellaneous Notes * Telephone Encounter - Lien Fuller RN - 05/29/2023 8:11 AM CDT Medication failed the protocol, provider to review and approve the medication order if appropriate. Requested Prescriptions Pending Prescriptions Disp Refills LevETIRAcetam (KEPPRA) 1000 MG Tablet [Pharmacy Med Name: LEVETIRACETA TAB 1000MG] 180 Tablet 2 Sig: TAKE 1 TABLET TWICE A DAY -DOSE ADJUSTMENT Not Delegated - Anticonvulsants Excluding Benzodiazepines Protocol Failed - 05/29/2023 1:18 AM Failed - This refill cannot be delegated Passed - Visit with relevant provider in past 12 months or upcoming 90 days Recent Visits Date Type Provider Dept 11/08/22 Office Visit Gurdeep Lorenzana MD [facility] Neurology [facility] Showing recent visits within past 365 days and meeting all other requirements Future Appointments Date Type Provider Dept 06/19/23 Appointment Gurdeep Lorenzana MD [facility] Showing future appointments within next 90 days and meeting all other requirements documented in this encounter Plan of Treatment Upcoming Encounters Date Type Department Care Team (Late st Contact Info) Description 07/28/2025 10:30 AM CDT Office Visit [facility] - [facility] [address] [place] [address] Gurdeep Lorenzana MD [address] [place] [address] documented as of this encounter Visit Diagnoses Diagnosis Multiple sclerosis (HCC) Multiple sclerosis documented in this encounter Care Teams Horologist Apprentice Relationship Specialty Start Date End Date Jae Hunt MD [address] [place] [address] PCP - General Internal Medicine 01/05/21 Gurdeep Lorenzana MD [address] [place] [address] Consulting Physician Neurology 07/16/23 documented as of this encounter
--- OUTSIDE RECORDS SUMMARY | 2025-03-14 14:43 | XMS_ITS | Encounter Summary ---
Author Organization [facility] Address [address] [facility] [place] [address] Phone Care Team Providers Care Typewriters Functional Tester Name Role Phone Jae Hunt MD Primary Care Provider [phone] Gurdeep Lorenzana MD Unavailable [phone] Reason for Visit * Reason Onset Date Comments Prior Authorization 01/27/2025 MRI L-SPINE Encounter Details Date Type Department Care Team (Late st Contact Info) Description 01/27/2025 Telephone [facility] [address] [place] [address] Gurdeep Lorenzana MD [address] [place] [address] Prior Authorization (MRI L-SPINE) Social History Tobacco Use Types Packs/Day Years [...] encounter Miscellaneous Notes * Telephone Encounter - Ines Rojas RN - 01/27/2025 11:20 AM CDT Attempted to reach patient to discuss denial. Phone just keeps ringing. No option to leave a message. * Telephone Encounter - Martine Shay - 01/27/2025 9:32 AM CDT Auth Denied-No P2P offered MRI BRAIN and MRI C-SPINE has been approved. MRI L-SPINE has been denied. Please indicate if appealwill be done Ordering Provider: Internal Payor + Plan: [employer]ET[employer] SOI - AETNA SOI CPT/Test: 11746 MRI L-SPINE W/O CONTRAST Authorization denied through: [employer] Reason for denial: For [address] Magnetic Resonance Imaging (MRI), a special kind of picture of your lower back without contrast (dye) Your doctor told us that you are having lower back pain that travelsto your hip and/or leg. An imaging study was asked for. We cannot approve this request because: Imaging requires six weeks of provider directed treatment to be completed. This must have been completed in the past three months without improved symptoms. Contact (via office visit, phone, email, or messaging) must occur after the treatment is completed. This has not been met because: The notes sent to us do not show you have completed a full six weeks of this type of treatment. Your treatment did not occur within the last 12 weeks. Symptoms must be the same or worse after treatment to support imaging. The notes sent to us do not show any contact with your provider after you completed your treatment.This contact is needed to plan your future care. This finding was based on [facility] Guidelines Section(s): Lower Extremity Pain with Neurological Features (Radiculopathy, Radiculitis, or Plexopathy and Neuropathy) with or without Low Back (Lumbar Spine) Pain (SP 6.1) and 1.0 General Guidelines. How to ask for an appeal by phone Call Member Services toll-free at . Add'l Steps Taken (Pt Notified, Reached out to Provider, etc.): Telephone encounter sent to provider for appeal Peer to Peer review offered by Payer: No Case #: [id number] Phone #: [phone] Ordering Provider: Gurdeep Lorenzana MD Phys. Notified? Yes Note for ordering office: If patient wishes to cancel the appointment, please complete cancellationprocess from the patient's appointment desk. Notification Made to Patient: Yes Contact type: Outbound If phone, contact number used: [phone] Contact Made: Left Message Reason for Call: Authorization Status/Issue documented in this encounter Plan of Treatment Upcoming Encounters Date Type Department Care Team ([facility] st Contact Info) Description 07/28/2025 10:30 AM CDT Office Visit [facility] [address] [place] [address] Gurdeep Lorenzana MD [address] [place] [address] documented as of this encounter Visit Diagnoses Not on filedocumented in this encounter Care Teams Typewriters Functional Tester Relationship Specialty Start Date End Date Jae Hunt MD [address] [place], [place] [id number] PCP - General Internal Medicine 01/05/21 Gurdeep Lorenzana MD [address] [place] [address] Consulting Physician Neurology 07/16/23 documented as of this encounter
--- OUTSIDE RECORDS SUMMARY | 2025-03-14 14:43 | XMS_ITS | Encounter Summary ---
Author Organization [facility] Address [address] [facility] [place] [address] Phone Care Team Providers Care Plate Worker Name Role Phone Jae Hunt MD Primary Care Provider [phone] Gurdeep Lorenzana MD Unavailable [phone] Reason for Visit * Reason Comments Medication Refill Encounter Details Date Type Department Care Team (Late st Contact Info) Description 02/24/2024 [facility] [address] [place] [address] Gurdeep Lorenzana MD [address] [place] [address] Medication Refill Social History Tobacco [...] Telephone Encounter - Ines Rojas RN - 02/24/2024 8:20 AM CDT Medication failed the protocol, provider to review and approve the medication order if appropriate. Requested Prescriptions Pending Prescriptions Disp Refills LevETIRAcetam (KEPPRA) 1000 MG Tablet [Pharmacy Med Name: LEVETIRACETA TAB 1000MG] 180 Tablet 2 Sig: TAKE 1 TABLET TWICE A DAY -DOSE ADJUSTMENT Not Delegated - Anticonvulsants Excluding Benzodiazepines Protocol Failed - 02/24/2024 7:07 AM Failed - This refill cannot be delegated Passed - Visit with relevant provider in past 12 months or upcoming 90 days Recent Visits Date Type Provider Dept 01/19/24 Office Visit Gurdeep Lorenzana MD [facility] Neurology [facility] 07/18/23 Office Visit Gurdeep Lorenzana MD [facility] Neurology [facility] Showing recent visits within past 365 days and meeting all other requirements Future Appointments No visits were found meeting these conditions. Showing future appointments within next 90 days and meeting all other requirements documented in this encounter Plan of Treatment Upcoming Encounters Date Type Department Care Team (Late st Contact Info) Description 07/28/2025 10:30 AM CDT [facility] [address] [place] [address] Gurdeep Lorenzana MD [address] [place] [address] documented as of this encounter Visit Diagnoses Diagnosis Multiple sclerosis (HCC) Multiple sclerosis documented in this encounter Care Teams Plate Worker Relationship Specialty Start Date End Date Jae Hunt MD [address] [place] [address] PCP - General Internal Medicine 01/05/21 Gurdeep Lorenzana MD [address] [place] [address] Consulting Physician Neurology 07/16/23 documented as of this encounter
--- OUTSIDE RECORDS SUMMARY | 2025-03-14 14:43 | XMS_ITS | Encounter Summary ---
Author Organization [facility] Address [address] [facility] [place] [address] Phone Care Team Providers Care Airway Controller Name Role Phone Jae Hunt MD Primary Care Provider [phone] Gurdeep Lorenzana MD Unavailable [phone] Reason for Visit * Reason Comments Medication Refill Encounter Details Date Type Department Care Team (Late Contact Info) Description 09/02/2022 [facility] [address] [place] [address] Gurdeep Lorenzana MD [address] [place] [address] Medication Refill Social History Tobacco [...] on file documented as of this encounter Plan of Treatment Upcoming Encounters Date Type Department Care Team (Late Contact Info) Description 07/28/2025 10:30 AM CDT Office Visit [facility] [address] [place] [address] Gurdeep Lorenzana MD [address] [place] [address] documented as of this encounter Visit Diagnoses Not on filedocumented in this encounter Care Teams Airway Controller Relationship Specialty Start Date End Date Jae Hunt MD [address] [place] [address] PCP - General Internal Medicine 01/05/21 Gurdeep Lorenzana MD [address] [place] [address] Consulting Physician Neurology 07/16/23 documented as of this encounter
--- OUTSIDE RECORDS SUMMARY | 2025-03-14 14:43 | XMS_ITS | Encounter Summary ---
Author Organization [facility] Address [address] [place] [address] Phone Care Team Providers Care Steward/Stewardess Third Class Name Role Phone Jae Hunt MD Primary Care Provider [phone] Gurdeep Lorenzana MD Unavailable [phone] Reason for Visit * Reason Comments Medication Refill Encounter Details Date Type Department Care Team (Late st Contact Info) Description [facility] [address] [place] [phone] Gurdeep Lorenzana MD [address] [place] [address] Medication Refill Social History Tobacco [...] Telephone Encounter - Lien Fuller RN - 03/04/2023 10:23 AM CDT Medication failed the protocol, provider to review and approve the medication order if appropriate. Requested Prescriptions Pending Prescriptions Disp Refills Kesimpta 20 MG/0.4ML Solution Auto-injector [Pharmacy Med Name: KESIMPTA PEN 20MG/0.4ML] 5 Sig: INJECT 1 PEN UNDER THE SKIN EVERY MONTH Not Delegated - Multiple Sclerosis Agents Protocol Failed - 03/04/2023 9:34 AM Failed - This refill cannot be delegated Passed - Visit with relevant provider in past 12 months or upcoming 90 days Recent Visits Date Type Provider Dept 11/08/22 Office Visit Gurdeep Lorenzana MD [facility] 03/26/22 Office Visit Gurdeep Lorenzana MD [facility] Neurology [facility] Showing recent visits within past 365 days and meeting all other requirements Future Appointments Date Type Provider Dept 05/19/23 Appointment Gurdeep Lorenzana MD [facility] Neurology [facility] Showing future appointments within next 90 days and meeting all other requirements documented in this encounter Plan of Treatment Upcoming Encounters Date Type Department Care Team (Late st Contact Info) Description 07/28/2025 10:30 AM CDT Office Visit [facility] - [place] [address] [place] [address] Gurdeep Lorenzana MD [address] [place] [address] documented as of this encounter Visit Diagnoses Not on filedocumented in this encounter Care Teams Steward/Stewardess Third Class Relationship Specialty Start Date End Date Jae Hunt MD [address] [place] [address] PCP - General Internal Medicine 01/05/21 Gurdeep Lorenzana MD [address] [place] [address] Consulting Physician Neurology 07/16/23 documented as of this encounter
--- OUTSIDE RECORDS SUMMARY | 2025-03-14 14:43 | XMS_ITS | Encounter Summary ---
Author Organization [facility] Address [address] [facility] [address] Phone Care Team Providers Care Managed Security Sales Consultant Name Role Phone Jae Hunt MD Primary Care Provider [phone] Gurdeep Lorenzana MD Unavailable [phone] Reason for Visit * Reason Comments Medication Refill Encounter Details Date Type Department Care Team (Late Contact Info) Description [facility] [place] [address] Gurdeep Lorenzana MD [address] [place] [address] Medication Refill Social History Tobacco [...] Description 07/28/2025 10:30 AM CDT Office Visit [facility] [address] [place] [address] Gurdeep Lorenzana MD [address] [place] [address] documented as of this encounter Visit Diagnoses Diagnosis Multiple sclerosis (HCC) Multiple sclerosis documented in this encounter Care Teams Managed Security Sales Consultant Relationship Specialty Start Date End Date Jae Hunt MD [address] [place] [address] PCP - General Internal Medicine 01/05/21 Gurdeep Lorenzana MD [address] [place] [address] Consulting Physician Neurology 07/16/23 documented as of this encounter
--- OUTSIDE RECORDS SUMMARY | 2025-03-14 14:43 | XMS_ITS | Encounter Summary ---
Author Organization [facility] Address [address] [place] [address] Phone Care Team Providers Care Entrepreneur Name Role Phone Jae Hunt MD Primary Care Provider [phone] Gurdeep Lorenzana MD Unavailable [phone] Reason for Visit * Reason Comments Medication Refill Encounter Details Date Type Department Care Team (Late st Contact Info) Description 08/14/2023 Refill [facility] - [facility] [address] [place] [address] Gurdeep Lorenzana MD [address] [place] [address] Medication Refill Social History Tobacco [...] on file Sexual Orientation Not on file COVID-19 Exposure Response Date Recorded In the last 10 days, have yo u been in contact with someone who was confirmed or suspected to have Coronavirus/COVID-19? No / Unsure 07/18/2023 12:56 PM CDT documented as of this encounter Miscellaneous Notes * Telephone Encounter - Lien Fuller RN - 08/14/2023 8:04 AM CST Medication failed the protocol, provider to review and approve the medication order if appropriate. Requested Prescriptions Pending Prescriptions Disp Refills Kesimpta 20 MG/0.4ML Solution Auto-injector [Pharmacy Med Name: KESIMPTA PEN 20MG/0.4ML] 5 Sig: INJECT 1 PEN UNDER THE SKIN EVERY MONTH Not Delegated - Multiple Sclerosis Agents Protocol Failed - 08/14/2023 1:43 AM Failed - This refill cannot be delegated Passed - Visit with relevant provider in past 12 months or upcoming 90 days Recent Visits Date Type Provider Dept 07/18/23 Office Visit Gurdeep Lorenzana MD [facility] Neurology [facility] 11/08/22 Office Visit Gurdeep Lorenzana MD [facility] Neurology [facility] Showing recent visits within past 365 days and meeting all other requirements Future Appointments No visits were found meeting these conditions. Showing future appointments within next 90 days and meeting all other requirements R RELATIONS COORDINATOR documented in this encounter Plan of Treatment Upcoming Encounters Date Type Department Care Team (Late st Contact Info) Description 07/28/2025 10:30 AM CDT [facility] - [place] [address] [place] [address] Gurdeep Lorenzana MD [address] [place] [address] documented as of this encounter Visit Diagnoses Not on filedocumented in this encounter Care Teams Entrepreneur Relationship Specialty Start Date End Date Jae Hunt MD [address] [place] [address] PCP - General Internal Medicine 01/05/21 Gurdeep Lorenzana MD [address] [place] [address] Consulting Physician Neurology 07/16/23 documented as of this encounter
--- OUTSIDE RECORDS SUMMARY | 2025-03-14 14:43 | XMS_ITS | Patient Health Record ---
Author Organization [facility] Address [address] [place], [place] [address] Care Team Providers Care Biology Manager Name Role Phone NICOLE ORLANDO Unavailable [phone] Jae Hunt Unavailable Unavailable ANALISA GALEANA Unavailable [phone] Allergies Allergen (clinical drug ingredient) Drug/Non Drug Allergy documented on EMR Reaction Allergy Type Onset Date Status Penicillin Unknown Drug Allergy Active Reason For Referral No Information Medications Medication SIG (Take, Route, Frequency, Duration) Notes Start Date End Date Status Omeprazole 10 MG 1 capsule 30 minutes before morning meal Orally Once a day Active Losartan Potassium 25 MG 1 tablet Orally Once a day Active Metoprolol Succinate 25 MG 1 capsule Ora lly Once a day Active levETIRAcetam 250 MG 1 tablet Orally arnulfo ry 12 hrs Active Kesimpta 20 MG/0.4ML as directed Subcutaneous Active Encounters Encounter Location Date Provider Diagnosis [address] [id number] 07/01/2024 ANALISA GALEANA Acquired keratosis [keratoderma] palmaris et plantaris L85.1 ; Flat foot [pes planus] (acquired), left foot M21.42 ; Flat foot [pes planus] (acquired), right foot M21.41 ; Pain in left foot M79.672 ; Other hammer toe(s) (acquired), right foot M20.41 and Other hammer toe(s) (acquired), left foot M20.[address] [id number] 09/09/2024 ANALISA GALEANA Acquired keratosis [keratoderma] palmaris et plantaris L85.1 ; Flat foot [pes planus] (acquired), left foot M21.42 ; Flat foot [pes planus] (acquired), right foot M21.41 ; Pain in left foot M79.672 ; Other hammer toe(s) (acquired), right foot M20.41 and Other hammer toe(s) (acquired), left foot M20.42 Assessments Encounter Date Diagnosis (ICD Code) Assessment Notes Treatment Notes Treatment Clinical Notes Section Notes 07/01/2024 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 After removal of overlying extensive hyperkeratosis, healthy tissue was noted and care was taken to assure that no undermining or probing was present. It should be noted that no probing was noted and no infection or drainage was noted. 07/01/2024 Flat foot [pes planus] (acquired), left foot (ICD-10 - M21.42) Patient educated on etiology and treatment options for flexible flat foot deformity. Educated patient on how a flexible flat foot deformity can in turn result in pathology such as hammer toe, bunions, equinus, neuromas. Recommend use of custom foot inserts to help alleviate plantar peak pressures and accomodate for digital deformity to feet. The patient was dispensed and fitted with over the counter power step pinnacle arch supports. The patient was educated on their use and effect. All questions were answered. 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 After removal of overlying extensive hyperkeratosis, healthy tissue was noted and care was taken to assure that no undermining or probing was present. It should be noted that no probing was noted and no infection or drainage was noted. 09/09/2024 Flat foot [pes planus] (acquired), left foot (ICD-10 - M21.42) Patient educated on etiology and treatment options for flexible flat foot deformity. Educated patient on how a flexible flat foot deformity can in turn result in pathology such as hammer toe, bunions, equinus, neuromas. Recommend use of custom foot inserts to help alleviate plantar peak pressures and accomodate for digital deformity to feet. The patient was dispensed and fitted with over the counter power step pinnacle arch supports. The patient was educated on their use and effect. All questions were answered. 07/01/2024 Flat foot [pes planus] (acquired), right foot (ICD-10 - M21.41) 09/09/2024 Flat foot [pes planus] (acquired), right foot (ICD-10 - M21.41) 07/01/2024 Pain in left foot (ICD-10 - M79.672) 09/09/2024 Pain in left foot (ICD-10 - M79.672) 07/01/2024 Other hammer toe(s) (acquired), right foot (ICD-10 - M20.41) The patient was educated regarding how to mechanically stabilize their deformity. The patient was given education about shoe recommendations specific for the condition. The patient was educated about custom orthotics and how appropriate shoes and orthotics can prevent further worsening of the deformity. The patient was educated about how bad shoe habits can worsen the condition. NSAIDS, P.T., injections and other conservative treatments were discussed. Both surgical and non surgical treatments were discussed, but conservative options were emphasized. 09/09/2024 Other hammer toe(s) (acquired), right foot (ICD-10 - M20.41) The patient was educated regarding how to mechanically stabilize their deformity. The patient was given education about shoe recommendations specific for the condition. The patient was educated about custom orthotics and how appropriate shoes and orthotics can prevent further worsening of the deformity. The patient was educated about how bad shoe habits can worsen the condition. NSAIDS, P.T., injections and other conservative treatments were discussed. Both surgical and non surgical treatments were discussed, but conservative options were emphasized. 09/09/2024 Other hammer toe(s) (acquired), left foot (ICD-10 - M20.42) 07/01/2024 Other hammer toe(s) (acquired), left foot (ICD-10 - M20.42) Plan Of Treatment No Information Insurance Providers Payer Name Payer Address Payer Phone Subscriber Number Group Number Insured Name Patient Relationship to Insured Coverage Start Date Coverage End Date [employer] [address] [place] [address] [id number] Samara Kelly Self - patient is the insured Medical (General) History Medical History History ICD Code acid reflux GERD Arthritis Bladder infections heart/disease/failure multiple sclerosis
--- OUTSIDE RECORDS SUMMARY | 2025-03-14 14:43 | XMS_ITS | Clinical Summary ---
Author Organization [facility] Address [address] [facility] [place] [address] Phone Care Team Providers Care Bulk Pigment Reducer Name Role Phone Jae Hunt MD Primary Care Provider [phone] Gurdeep Lorenzana MD Unavailable [phone] Allergies Active Allergy Reactions Criticality Noted Date Comments Penicillin G Rash 01/04/2021 Medications LOSARTAN POTASSIUM PO Take by mouth. Ac tive Metoprolol Succinate (TOPROL XL PO) Take by mouth. Active omeprazole (PriLOSEC) 40 MG CAPSULE DELAYED RELEASE Take 40 mg by mouth daily. Active levalbuterol (XOPENEX HFA) 45 MCG/ACT Aerosol take 2 Puffs by inhalation every 6 hours as needed. Active VITAMIN D PO Take 1,000 Units by mouth. Active fluticasone (Flovent HFA) 220 MCG/ACT Aerosol take 1 Puff by inhalation 2 times daily. Active Fluticasone Furoate 27.5 MCG/SPRAY Suspension 2 Puffs by Nasal route daily. Active Ofatumumab (Kesimpta) 20 MG/0.4ML Solution Auto-injectorI ndications:Mul tiple sclerosis (HCC) 0.4 mL by Subcutaneous route every 30 days. 1.2 mL 2 5 Active LevETIRAcetam (KEPPRA) 1000 MG TabletIndicati ons:Multiple sclerosis (HCC) TAKE 1 TABLET TWICE A DAY -DOSE ADJUSTMENT 180 Tablet 2 5 Active predniSONE (DELTASONE) 20 MG Tablet Take 5 Tablets by mouth daily for 3 days, THEN 4 Tablets daily for 3 days, THEN 3 Tablets daily for 3 days, THEN 2 Tablets daily for 3 days, THEN 1 Tablet daily for 3 days. 45 Tablet 02/16/20 25 Encounters Date Type Department Care Team Description 01/31/2025 Telephone [facility] [address] [place] [address] Gurdeep Lorenzana MD 01/27/2025 Telephone [facility] HealthCare Referral Management Services [address] [place] [id number] Gurdeep Lorenzana MD Prior Authorization (MRI L-SPINE) 01/20/2025 11:00 AM CDT Office Visit [facility] Neurology [facility] [address] [place] [address] Gurdeep Lorenzana MD Multiple sclerosis (HCC) (Primary Dx); Sciatica of right side; Seizure (HCC); Recurrent UTI Discharge Disposition: Discharged to home or Selfcare 01/20/2025 Travel from Last 3 Months Family History Medical History Relation Name Comments Heart Disease Father Relation Name Status Comments Father Mother Alive Social History Tobacco Use Types Packs/Day Years Used Date Smoking Tobacco: Never Smokeless Tobacco: Never Tobacco Cessation:Counseling Given: Not Answered Alcohol Use Standard Drinks/Week Comments Never 0 (1 standard drink = 0.6 oz pur e alcohol) Comments Unknown Sex and Gender Information Value Date Recorded Sex Assigned at Not on file Legal Sex Female 8:50 PM CDT Gender Identity Not on file Sexual Orientation Not on file Last Filed Vital Signs Vital Sign Reading Time Taken Comments Blood Pressure 116/72 01/20/2025 10:54 AM CDT Pulse 87 01/20/2025 10:54 AM CDT Temperature 36.4 C (97.6 F) 01/20/2025 10:54 AM CDT Respiratory Rate 17 01/20/2025 10:54 AM CDT Oxygen Saturation 97% 01/20/2025 10:54 AM CDT Inhaled Oxygen Concentration - - Weight 73.8 kg (162 lb 9.6 oz) 01/20/2025 10:54 AM CDT Height 154.9 cm (5' 1) 01/20/2025 10:54 AM CDT Body Mass Index 30.72 01/20/2025 10:54 AM CDT Plan of Treatment Upcoming Encounters Date Type Department Care Team (Late st Contact Info) Description 07/28/2025 10:30 AM CDT Office Visit [facility] - Neurology [facility] [address] [place] [address] Gurdeep Lorenzana MD [address] [place] [address] Health Maintenance Due Date Last Done Comments DEXA Bone Density 1959 Mammogram 1959 Pap Smear 1980 Cervical Cancer Screening (CCS) 1989 HPV/Cotest 1989 Cologuard 2004 Colonoscopy 2004 Colorectal Cancer Screening 2004 Immunochemical Fecal Occult Blood 2004 Pneumococcal Immunization (5 0+ years) (1 of 1 - PCV) 2009 SARS-COV-2 Immunization (3 - season) 2024 02/17/2021, 01/27/2021 Zoster Immunization (2 of 2) 07/24/2024 05/29/2024 Influenza Immunization (Seas on Ended) 2025 07/21/2023 Hepatitis C Virus (HCV) Screening Completed 01/05/2021 DTaP/Tdap/Td Immunization Discontinued 05/21/2023 TdaP Immunization Completed 05/21/2023 Respiratory Syncytial Virus (RSV) Immunization (Adult) Completed 07/21/2023 Hepatitis B Immunization Aged Out No longer eligible based on patient's age to complete this topic Human Papillomavirus (HPV) Immunization Aged Out No longer eligible based on patient's age to complete this topic Meningococcal Immunization (ACWY) Aged Out No longer eligible based on patient's age to complete this topic Rotavirus Immunization Aged Out No lo nger eligible based on patient's age to complete this topic Procedures Procedure Name Priority Date/Time Associated Diagnosis Comments HEPATITIS C ANTIBODY Routine 01/05/2021 10:47 AM CDT Multiple sclerosis (HCC) from Last 3 Months or Most Recently Relevant to Health Maintenance Results * HEPATITIS C ANTIBODY (01/05/2021 10:47 AM CDT) hepatitis C antibody 0.07 <1 S/[facility] [id number] 01/05/2021 8:43 PM CDT [facility] Comment: Signal/Cutoff ratio < 0.79 is Nondetected Signal/Cutoff ratio 0.80-0.99 is Grayzone Signal/Cutoff ratio > 0.99 is Detected Supplemental assays are recommended if signal/cutoff ratio is >/=1.00. Signal/cutoff ratio result >/= 5.00 is 97% predictive of positivity for recombinant immunoblot assay (RIBA) and will be reported to the [place] [facility] Public [facility] as required. Blood Venipuncture / Unknown 01/05/2021 10:47 AM CDT 01/05/2021 10:47 AM CDT us Gurdeep Lorenzana MD CHEMISTRY ORDERABLES Final R esult [facility] [address] [place] [address], from Last 3 Months or Most Recently Relevant to Health Maintenance Insurance [employer] Care Teams Bulk Pigment Reducer Relationship Specialty Start Date End Date Jae Hunt MD [address] [place] [address] PCP - General Internal Medicine 01/05/21 Gurdeep Lorenzana MD [address] [place] [address] Consulting Physician Neurology 07/16/23
--- OUTSIDE RECORDS SUMMARY | 2025-03-14 14:43 | XMS_ITS | Encounter Summary ---
Author Organization [facility] Address [address] [place] [address] Phone Care Team Providers Care Bale Breaker Operator Name Role Phone Jae Hunt MD Primary Care Provider [phone] Gurdeep Lorenzana MD Unavailable [phone] Reason for Visit * Reason Comments Medication Refill Encounter Details Date Type Department Care Team (Late Contact Info) Description 12/13/20[facility] [address] [place] [phone] Gurdeep Lorenzana MD [address] [place] [address] Medication Refill Social History Tobacco [...] Description 07/28/2025 10:30 AM CDT Office Visit [facility] [address] [place] [phone] Gurdeep Lorenzana MD [address] [place] [address] documented as of this encounter Visit Diagnoses Diagnosis Multiple sclerosis (HCC) Multiple sclerosis documented in this encounter Care Teams Bale Breaker Operator Relationship Specialty Start Date End Date Jae Hunt MD [address] [place] [address] PCP - General Internal Medicine 01/05/21 Gurdeep Lorenzana MD [address] [place] [id number] Consulting Physician Neurology 07/16/23 documented as of this encounter
== END 2025-03-14 13:27 | disposition home or self-care (01) ==
PROVIDERS: PCP Internal Medicine; Visit Provider Nurse Practitioner Family
DX: M25.531 Pain in right wrist (principal); M19.041 Primary osteoarthritis, right hand
CPT/HCPCS: 73110; 73130